=== PATIENT | male | born 1950 | race Caucasian/White ===

== ENCOUNTER 2018-12-27 10:39 | Emergency (ER) | payer MEDICARE, MEDICAID ==
[~2018-12-27] VITALS: Ht 175.3 cm; Wt 68.2 kg
--- NOTE | 2018-12-27 10:57 | ED Lower Extremity ---
General Chief Complaint: Lower Extremity Stated Complaint: KNEE INJ Source: patient Exam Limitations: no limitations History of Present Illness Date Seen by Provider: Dec 27, 2018 Time Seen by Provider: 10:45 Initial Comments The patient is a pleasant 69-year-old male who states that he was at a department store in the self checkout when his right knee buckled and then he fell directly onto the knee. He expressed immediate pain was unable to bear weight. He states that he has a chronic knee issue where his knee will buckle at times and that this is not unusual. However he has not experienced this type of pain in his knee before today. He is alert and oriented 4, calm, and appears to be in no distress at this time. He denies any other injuries from the fall. He is not taking any anticoagulants. He denies any previous surgery to the knee. Severity: moderate Pain/Injury Location: right knee Method of Injury: fell Modifying Factors: Improves With Movement (makes the pain worse ) Allergies and Home Medications Allergies Coded Allergies: No Known Drug Allergies (Unverified , 12/27/18) Patient Home Medication List Home Medication List Reviewed: Yes Review of Systems Constitutional: no symptoms reported EENTM: no symptoms reported Respiratory: no symptoms reported Cardiovascular: no symptoms reported Gastrointestinal: no symptoms reported Genitourinary: no symptoms reported Musculoskeletal: other (right knee pain) Skin: no symptoms reported Psychiatric/Neurological: No Symptoms Reported All Other Systems Reviewed Negative Unless Noted: Yes Past Kiyqchh-Hllhfi-Gckpeo Hx Past Med/Social Hx: Reviewed Nursing Past Med/Soc Hx Patient Social History Physical Abuse: No Sexual Abuse: No Mistreated: No Fear: No Physical Exam Vital Signs Vital Signs - First Documented 12/27/18 10:45 Temp 36.4 Pulse 68 Resp 18 B/P (MAP) 163/102 (122) Pulse Ox 98 O2 Delivery Room Air Capillary Refill : Height, Weight, BMI Height: '" Weight: lbs. oz. kg; BMI Method: General Appearance: WD/WN, no apparent distress HEENT: PERRL/EOMI, normal ENT inspection Cardiovascular: regular rate, rhythm, no edema, no JVD Respiratory: chest non-tender, normal breath sounds Gastrointestinal: normal bowel sounds, non tender, soft Back: normal inspection, no CVA tenderness Hips: bilateral hip non-tender, bilateral hip normal inspection, bilateral hip normal range of motion Knees: left knee non-tender, left knee normal inspection, left knee normal range of motion; right knee bone tenderness (right patella), right knee deformity (right patella deformity present), right knee ecchymosis, right knee pain, right knee swelling Ankles: bilateral ankle non-tender, bilateral ankle normal inspection, bilateral ankle normal range of motion Feet: bilateral foot non-tender, bilateral foot normal inspection, bilateral foot normal range of motion 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, alert, normal mood/affect, oriented x 3 Skin: normal color, warm/dry Progress/Results/Core Measures Results/Orders My Orders Orders - LEE ANN MOORE DO Knee 3 View Right (12/27/18 10:48) Ice: Apply To Affected Area (12/27/18 10:48) Hydrocodone/Apap 5/325 Tablet (Lortab 5 (12/27/18 11:15) Crutches (12/27/18 11:31) Knee Immobilizer (12/27/18 11:31) Medications Given in ED Current Medications Medications Dose Ordered Sig/Trace Route Start Time Stop Time Status Last Admin Dose Admin Acetaminophen/ Hydrocodone Bitart 1 tab ONCE ONCE PO 12/27/18 11:15 12/27/18 11:16 DC 12/27/18 11:22 1 TAB Vital Signs/I&O 12/27/18 10:45 Temp 36.4 Pulse 68 Resp 18 B/P (MAP) 163/102 (122) Pulse Ox 98 O2 Delivery Room Air Progress Progress Note : Progress Note @1130 - The patient has a patella fracture. He has been placed in a knee immobilizer and will go home with crutches and pain medication. He has been given orthopedic follow-up. Advised the patient to return immediately for new or worsening symptoms. Expresses verbal understanding and agreement with the plan and is stable for discharge. Departure Impression Primary Impression: Right patella fracture Disposition: 01 HOME, SELF-CARE Condition: Stable Departure-Patient Inst. Referrals: TERESA BARRON DO Patient Instructions: Patella Fracture (DC) Add. Discharge Instructions: Take the prescribed medication as directed. Follow-up with Dr. Barron from orthop edics by calling his office in the next 1-2 days. Return to the emergency Department immediately for new or worsening symptoms. Use the knee immobilizer and crutches provided until cleared by orthopedics. Scripts Hydrocodone/Acetaminophen ([place] 5-325 Tablet) 1 Each Tablet 1 TAB PO Q4-6HR for Pain MDD 10 TABS for 7 Days, #20 TAB Prov: LEE ANN MOORE DO 12/27/18 LEE ANN MOORE DO Dec 27, 2018 10:57
[2018-12-27] MEDS: HYDROcodone/APAP 5 MG/325 MG (LORTAB) TAB PO ONE (11:22)
[2018-12-27] MEDS ORDERED: HYDR-4226 PO (11:37)
--- NOTE | 2018-12-27 11:38 | Diagnostic Imaging Report ---
CLINICAL INDICATION: Patient with pain and injury. Patient fell on concrete at [employer]. EXAM: X-ray of the right knee, 3 views. COMPARISON: None. FINDINGS AND IMPRESSION: 1. There is concern for a horizontal fracture involving the inferior aspect of the right patella with minimal inferior distraction of the smaller patellar fracture fragment. This is predominantly seen on the lateral view. A CT scan of the right knee would better evaluate. 2. There are small degenerative spurs involving the proximal fibular metaphysis. 3. The remainder of the right knee shows no other significant abnormality. Dictated by: Dictated on workstation # [id number]
[2018-12-27 12:22] VITALS: BP 158/92
== END 2018-12-27 12:54 | disposition home or self-care (01) ==
LOC: ER FS 10:46 → EDBD 10:46 → ER FS 12:54
DX: S82.001A Unspecified fracture of right patella, initial encounter for closed fracture (principal); W18.30XA Fall on same level, unspecified, initial encounter; Y92.512 Supermarket, store or market as the place of occurrence of the external cause
CPT/HCPCS: 73562

== ENCOUNTER → 2019-01-02 | Outpatient (CLI) | payer MEDICARE, MEDICAID ==
[~2019-01-02] MED LIST: HYDR-4226 PO
--- NOTE | 2019-01-02 15:37 | Diagnostic Imaging Report ---
INDICATION: Preop for knee surgery. TIME OF EXAM: 03:31 p.m. COMPARISON: No prior studies are available for comparison. FINDINGS: The heart size is normal. The pulmonary vascularity is unremarkable. The lungs are clear. No infiltrate, effusion or pneumothorax is detected. IMPRESSION: No acute cardiopulmonary process is detected. Dictated by: Dictated on workstation # [id number]
[2019-01-02 15:50] LABS: BASOPHILS % (AUTO) 0 % (0-10); EOSINOPHILS # (AUTO) 0.1 10^3/uL (0.0-0.3); EOSINOPHILS % (AUTO) 1 % (0-10); HEMATOCRIT 45 % (40-54); HEMOGLOBIN 15.5 G/DL (13.3-17.7); LYMPHOCYTES # (AUTO) 1.6 X 10^3 (1.0-4.0); LYMPHOCYTES % (AUTO) 20 % (12-44); MEAN CORPUSCULAR HEMOGLOBIN 31 PG (25-34); MEAN CORPUSCULAR HGB CONC 35 G/DL (32-36); MEAN CORPUSCULAR VOLUME 88 FL (80-99); MEAN PLATELET VOLUME 10.3 FL (7.4-10.4); MONOCYTES # (AUTO) 0.7 X 10^3 (0.0-1.0); MONOCYTES % (AUTO) 9 % (0-12); NEUTROPHILS # (AUTO) 5.6 X 10^3 (1.8-7.8); NEUTROPHILS % (AUTO) 70 % (42-75); PLATELET COUNT 204 10^3/uL (130-400); RED CELL DISTRIBUTION WIDTH 13.4 % (10.0-14.5)
[2019-01-02 16:08] LABS: BILIRUBIN,URINE NEGATIVE (NEGATIVE); COLOR,URINE YELLOW; GLUCOSE, URINE (UA) NEGATIVE (NEGATIVE); KETONES,URINE NEGATIVE (NEGATIVE); LEUKOCYTE ESTERASE ,URINE 1+ (NEGATIVE); NITRITE,URINE NEGATIVE (NEGATIVE); PH,URINE 7 (5-9); PROTEIN,URINE 1+ (NEGATIVE); UROBILINOGEN,URINE 4 MG/DL (NORMAL)
[2019-01-02 16:11] LABS: ALANINE AMINOTRANSFERASE 20 U/L (0-55); ALBUMIN 4.1 GM/DL (3.2-4.5); ALKALINE PHOSPHATASE 98 U/L (40-136); BILIRUBIN,TOTAL 0.9 MG/DL (0.1-1.0); BUN/CREATININE RATIO 25; CALCIUM 9.9 MG/DL (8.5-10.1); CARBON DIOXIDE 27 MMOL/L (21-32); CHLORIDE 103 MMOL/L (98-107); CREATININE SERUM 0.56 MG/DL (0.60-1.30); GFR ESTIMATED > 60; GLUCOSE 100 MG/DL (70-105); POTASSIUM 4.1 MMOL/L (3.6-5.0); SODIUM 140 MMOL/L (135-145); TOTAL PROTEIN 7.3 GM/DL (6.4-8.2)
[2019-01-02 16:12] LABS: CLARITY,URINE SL CLOUDY
[2019-01-02 16:14] LABS: BACTERIA,URINE TRACE /HPF; SQUAMOUS EPITHELIAL CELL,UR 0-2 /HPF; WBC,URINE 0-2 /HPF
== END ==
LOC: RAD 15:16
PROVIDERS: ATTEND Orthopaedic Surgery Orthopaedic Trauma
DX: Z01.811 Encounter for preprocedural respiratory examination (principal); Z01.812 Encounter for preprocedural laboratory examination; I10 Essential (primary) hypertension
CPT/HCPCS: 36415; 71046; 80053; 81000; 85025

== ENCOUNTER 2020-09-01 05:42 | Outpatient (RCR) | payer MEDICARE, MEDICAID ==
[~2020-09-01] VITALS: Ht 177.8 cm; Wt 63.6 kg
== END 2020-09-04 12:27 | disposition home or self-care (01) ==
LOC: PREOP 05:42
PROVIDERS: ATTEND Surgery
DX: Z01.818 Encounter for other preprocedural examination (principal)

== ENCOUNTER → 2020-09-05 | Outpatient (CLI) | payer MEDICARE, MEDICAID ==
[~2020-09-05] MED LIST changes: +LOVA10TA PO; +MTP25TSR PO
== END ==
LOC: LAB FS 10:40
PROVIDERS: ATTEND Surgery
DX: Z01.812 Encounter for preprocedural laboratory examination (principal); R13.10 Dysphagia, unspecified; Z20.822 Contact with and (suspected) exposure to COVID-19
CPT/HCPCS: 87635

== ENCOUNTER 2020-09-08 09:00 | Day surgery (SDC) | payer MEDICARE, MEDICAID ==
[~2020-09-08] VITALS: Ht 177.8 cm; Wt 63.6 kg
[~2020-09-08 09:00] MED LIST changes: +LACTATED RINGERS 1,000 ML IV ONE; -LOVA10TA PO; -MTP25TSR PO
[2020-09-08] MEDS ORDERED: HURRICAINE EXT TUBE (BENZOCAINE) XX PRN (09:15)
[2020-09-08 09:22] VITALS: BP 168/87
[2020-09-08] MEDS ORDERED: MTP25TSR PO (09:25)
[2020-09-08] MEDS ORDERED: LOVA10TA PO (09:25)
[2020-09-08] MEDS ORDERED: LACTATED RINGERS 1,000 ML IV SCH (09:30)
--- NOTE | 2020-09-08 09:53 | Progress Note-Pre Operative ---
Pre-Operative Progress Note H&P Reviewed The H&P was reviewed, patient examined and no changes noted. Time Seen by Provider: 09:51 Date H&P Reviewed: September 08, 2020 Time H&P Reviewed: 09:51 Pre-Operative Diagnosis: Dysphagia EMERALD DUMONT DO September 08, 2020 09:53
[2020-09-08] MEDS ORDERED: proPOfol 200 MG/20 ML (DIPRIVAN) VIAL IV ONE (10:22)
[2020-09-08 11:03] VITALS: BP 130/71
--- NOTE | 2020-09-08 11:05 | Anesthesia-General Post-Op ---
MAC Patient Condition Mental Status/LOC: Same as Preop Cardiovascular: Satisfactory Nausea/Vomiting: Absent Respiratory: Satisfactory Pain: Controlled Complications: Absent Post Op Complications Complications None Follow Up Care/Instructions Patient Instructions None needed. Anesthesiology Discharge Order Discharge Order Patient is doing well, no complaints, stable vital signs, no apparent adverse anesthesia problems. No complications reported per nursing. MICHELLE MUIR CRNA September 08, 2020 11:05
[2020-09-08 11:08] VITALS: BP 131/71
--- NOTE | 2020-09-08 11:09 | Progress Note-Post Operative ---
Post-Operative Progess Note Surgeon (s)/Genetic Engineer (s) Surgeon EMERALD DUMONT DO Genetic Engineer: none Pre-Operative Diagnosis Dysphagia Post-Operative Diagnosis Esophageal Stricture gastric ulcer gastritis Duodenal surgery?? Procedure & Operative Findings Date of Procedure 09/08/20 Procedure Performed/Findings PROCEDURE NOTE: After informed consent was obtained, the patient was brought to the endoscopy suite, placed in bed in left lateral decubitus position. He was administered IV sedation by the DIRECTOR OF STRATEGIC INITIATIVES who then monitored his vitals the entire time, heart rate, blood pressure and pulse ox and the scope was inserted down the mouth through the esophagus into the stomach. On the way down, noted some mild esophagitis, took a picture. There was some narrowing at the GE junction, barely able to push the scope through and this caused a little bleeding. Able to push into the stomach, pushed past the antrum into the duodenum. Duodenum had some mild inflammation and then found an anastomosis in this area. Pulled back and did a biopsy of antrum, then retroflexed the scope, no hiatal hernia, but again saw some bleeding and then saw what looked like an ulcer in the cardia. Did a biopsy of the ulcer and then pulled the scope into the GE junction, noted some inflammation and then did two biopsies of the GE junction. Pushed the scope back into the stomach, suctioned all the air out of the stomach and then pulled the scope up the esophagus, took some pictures in the esophagus. There were no ulcers and at this point pulled the scope up the esophagus and out the mouth. The patient tolerated the procedure, and he recovered in endoscopy suite. Anesthesia Type IV sedation by DIRECTOR OF STRATEGIC INITIATIVES Estimated Blood Loss Estimated blood loss (mL): scant Specimens/Packing Specimens Removed antral bx cardia bx GE jxn bx EMERALD DUMONT DO September 08, 2020 11:09
[2020-09-08 11:10] VITALS: BP 127/72
--- NOTE | 2020-09-08 11:10 | Endoscopy Discharge Instruct ---
Endo Procedure/Findings Findings 1.: Stricture 2.: Gastric Ulcer 3.: Gastritis Discharge Instructions - Activity: You might feel a little sleepy until tomorrow. This is due to the medicine you received to relax you. Until tomorrow, you should: NOT drive a car, operate machinery or power tools. NOT drink any alcoholic beverages. NOT make any important decisions or sign importortant papers. Do not return to work until tomorrow, unless otherwise instructed. Resume previous activities tomorrow. Diet: Start by taking liquids. If you tolerate liquids, advance to solid food. 1.: EGD in 6-8 weeks Notify Physician - If you experience excessive bleeding, unusual abdominal pain, fever, or chest pain, contact your doctor immediately. EMERALD DUMONT DO September 08, 2020 11:10
[2020-09-08 11:38] VITALS: BP 152/97
[2020-09-08 11:39] VITALS: BP 152/97
== END 2020-09-08 11:41 | disposition home or self-care (01) ==
LOC: ENDO 09:00
PROVIDERS: ATTEND Surgery
DX: K20.90 Esophagitis, unspecified without bleeding (principal); K29.50 Unspecified chronic gastritis without bleeding; B96.81 Helicobacter pylori [H. pylori] as the cause of diseases classified elsewhere; K22.2 Esophageal obstruction; K25.9 Gastric ulcer, unspecified as acute or chronic, without hemorrhage or perforation; I10 Essential (primary) hypertension; Z79.899 Other long term (current) drug therapy; Z87.891 Personal history of nicotine dependence; Z80.9 Family history of malignant neoplasm, unspecified; Z86.010 Personal history of colon polyps

== ENCOUNTER 2020-09-30 13:41 | Outpatient (RCR) | payer MEDICARE, MEDICAID ==
[~2020-09-30 13:41] MED LIST changes: -LACTATED RINGERS 1,000 ML IV ONE; +LOVA10TA PO; +MTP25TSR PO
== END 2020-12-29 | disposition home or self-care (01) ==
LOC: LAB 13:41
PROVIDERS: ATTEND Surgery
DX: Z01.89 Encounter for other specified special examinations (principal); B96.81 Helicobacter pylori [H. pylori] as the cause of diseases classified elsewhere
CPT/HCPCS: 36415; 87338

== ENCOUNTER 2022-08-25 06:48 | Outpatient (CLI) | payer MEDICARE, MEDICAID ==
[~2022-08-25] VITALS: Ht 175.3 cm; Wt 65.3 kg
[2022-08-25] MEDS ORDERED: AMLO-250 PO (09:25)
== END 2022-08-25 09:34 | disposition home or self-care (01) ==
LOC: PREOP 06:48
PROVIDERS: ATTEND Surgery
DX: Z01.818 Encounter for other preprocedural examination (principal)

== ENCOUNTER 2022-08-30 09:30 | Day surgery (SDC) | payer MEDICARE, MEDICAID ==
[~2022-08-30] VITALS: Ht 175 cm; Wt 65.3 kg
[~2022-08-30 09:30] MED LIST changes: +AMLO-250 PO
[2022-08-30] MEDS ORDERED: LACTATED RINGERS 1,000 ML IV STA (09:35)
[2022-08-30 09:55] VITALS: BP 173/92
--- NOTE | 2022-08-30 10:17 | Progress Note-Pre Operative ---
Pre-Operative Progress Note Date of Available H&P: August 19, 2022 Date H&P Reviewed: August 30, 2022 Time H&P Reviewed: 10:16 History & Physical: H&P Reviewed, Patient Examed, No changes noted Pre-Operative Diagnosis: hx of polyp EMERALD DUMONT DO August 30, 2022 10:17
[2022-08-30] MEDS ORDERED: PROPOFOL INJECTION 50 ML IV ONE (11:12)
--- NOTE | 2022-08-30 11:41 | Anesthesia-General Post-Op ---
MAC Patient Condition Mental Status/LOC: Same as Preop Cardiovascular: Satisfactory Nausea/Vomiting: Absent Respiratory: Satisfactory Pain: Controlled Complications: Absent Post Op Complications Complications None Follow Up Care/Instructions Patient Instructions None needed. Anesthesiology Discharge Order Discharge Order Patient is doing well, no complaints, stable vital signs, no apparent adverse anesthesia problems. No complications reported per nursing. MICHELLE MUIR CRNA August 30, 2022 11:41
--- NOTE | 2022-08-30 11:44 | Progress Note-Post Operative ---
Post-Operative Progess Note Surgeon (s)/It Sales Consultant (s) Surgeon EMERALD DUMONT DO It Sales Consultant: ASHLEY Johnson student Pre-Operative Diagnosis hx of polyp Post-Operative Diagnosis Polyps Diverticula int hemorrhoids poor prep Procedure & Operative Findings Date of Procedure 08/30/22 Procedure Performed/Findings Colonoscopy with snare polypectomy PROCEDURE NOTE: After informed consent was obtained, the patient was brought to the endoscopy suite, placed in bed in left lateral decubitus position. He was administered IV sedation by the L TACKER who then monitored his vitals the entire time, heart rate, blood pressure and pulse ox and the scope was inserted. Unfortunately, immediately encountered liquid and solid fecal material. Kept pushing gently and saw diverticula (lots) and took a picture. I also found a polyp in the descending colon that I elected to remove with the snare. Then pushed all the way to about 150 cm and pushed into the cecum, took a picture of appendiceal orifice and noted the ileocecal valve. I found another polyp in the cecum and removed it with the snare as well. Then slowly withdrew the scope insufflating to look circumferentially at the ortiz starting in the cecum, up the ascending colon to the hepatic flexure, then down the transverse colon, splenic flexure, into the descending colon down in the sigmoid and then into the rectal vault and retroflexed the scope. Took a picture of the internal hemorrhoids. The patient tolerated the procedure. He was recovered in endoscopy suite. Recommended for repeat colonoscopy in 3 years because of the polyps and poor prep. Anesthesia Type IV sedation by L TACKER Estimated Blood Loss Estimated blood loss (mL): scant Specimens/Packing Specimens Removed Desc colon polyp Cecal polyp EMERALD DUMONT DO August 30, 2022 11:44
[2022-08-30 11:45] VITALS: BP 75/50
--- NOTE | 2022-08-30 11:45 | Endoscopy Discharge Instruct ---
Endo Procedure/Findings Findings 1.: Polyp 2.: Diverticulosis 3.: Internal Hemorrhoids Discharge Instructions - Activity: You might feel a little sleepy until tomorrow. This is due to the medicine you received to relax you. Until tomorrow, you should: NOT drive a car, operate machinery or power tools. NOT drink any alcoholic beverages. NOT make any important decisions or sign importortant papers. Do not return to work until tomorrow, unless otherwise instructed. Resume previous activities tomorrow. Diet: Start by taking liquids. If you tolerate liquids, advance to solid food. 1.: Colonscopy in 3 years Notify Physician - If you experience excessive bleeding, unusual abdominal pain, fever, or chest pain, contact your doctor immediately. Follow-Up: Other Follow up in my office in one week EMERALD DUMONT DO August 30, 2022 11:45
[2022-08-30 11:50] VITALS: BP 92/53
[2022-08-30 11:55] VITALS: BP 96/56
[2022-08-30 12:05] VITALS: BP 96/56
== END 2022-08-30 12:40 | disposition home or self-care (01) ==
LOC: ENDO 09:30
PROVIDERS: ATTEND Surgery
DX: Z12.11 Encounter for screening for malignant neoplasm of colon (principal); D12.4 Benign neoplasm of descending colon; D17.5 Benign lipomatous neoplasm of intra-abdominal organs; K57.30 Diverticulosis of large intestine without perforation or abscess without bleeding; K64.8 Other hemorrhoids